=== PATIENT | female | born 1985 | race Two or more races ===

== ENCOUNTER 2022-02-28 07:15 | Emergency (ER) | payer MEDICAID, OTHER ==
[~2022-02-28] VITALS: Ht 162.6 cm; Wt 81.4 kg
[2022-02-28 07:40] VITALS: BP 129/94
[2022-02-28] MEDS ORDERED: TETRACAINE HCL 0.5% OPTH(EYE) SOLN 4ML RIGHTEYE ONE (08:00)
[2022-02-28] MEDS ORDERED: FLUORESCEIN SOD OPTH TEST STRIP OP ONE (08:00)
[2022-02-28] MEDS ORDERED: CIP03OS RIGHTEYE (08:29)
== END 2022-02-28 08:44 | disposition home or self-care (01) ==
LOC: ER 07:15
DX: S05.01XA Injury of conjunctiva and corneal abrasion without foreign body, right eye, initial encounter (principal); X58.XXXA Exposure to other specified factors, initial encounter; Y93.89 Activity, other specified; Y92.89 Other specified places as the place of occurrence of the external cause; Y99.8 Other external cause status

== ENCOUNTER 2022-11-20 16:27 | Emergency (ER) | payer MEDICAID ==
[~2022-11-20] VITALS: Ht 162.6 cm; Wt 86.4 kg
[~2022-11-20 16:27] MED LIST: CIP03OS RIGHTEYE
[2022-11-20] MEDS ORDERED: ACETAMINOPHEN 500 MG TAB PO ONE (17:45)
[2022-11-20 17:46] VITALS: BP 133/90
[2022-11-20] MEDS ORDERED: IBUP600T28 PO (18:22)
[2022-11-20] MEDS ORDERED: IBUPROFEN 600 MG TAB PO ONE (18:30)
[2022-11-20] MEDS ORDERED: SUMAtriptan SUCCINATE 25 MG TAB PO ONE (18:45)
== END 2022-11-20 18:27 | disposition home or self-care (01) ==
LOC: ER 16:27
DX: G43.909 Migraine, unspecified, not intractable, without status migrainosus (principal)
CPT/HCPCS: 70450

== ENCOUNTER 2022-11-26 23:43 | Emergency (ER) | payer MEDICAID ==
[~2022-11-26] VITALS: Ht 170.2 cm; Wt 81.8 kg
[~2022-11-26 23:43] MED LIST changes: +IBUP600T28 PO
[2022-11-27] MEDS ORDERED: IBUP800T27 PO (03:52)
[2022-11-27 04:30] VITALS: BP 134/79
== END 2022-11-27 04:30 | disposition home or self-care (01) ==
LOC: ER 23:43
DX: S93.402A Sprain of unspecified ligament of left ankle, initial encounter (principal); W01.0XXA Fall on same level from slipping, tripping and stumbling without subsequent striking against object, initial encounter; Y93.89 Activity, other specified; Y92.89 Other specified places as the place of occurrence of the external cause; Y99.8 Other external cause status
CPT/HCPCS: 73610

== ENCOUNTER 2023-01-21 23:55 | Emergency (ER) | payer MEDICAID ==
[~2023-01-21] VITALS: Ht 167.6 cm; Wt 77.2 kg
[~2023-01-21 23:55] MED LIST changes: +IBUP-1456 PO; +IBUP1TAB5 PO; -IBUP600T28 PO
[2023-01-22] MEDS ORDERED: ONDANSETRON HCL 4 MG/2 ML VIAL IV ONE (00:30)
[2023-01-22] MEDS ORDERED: HYDROmorphone HCL 2 MG/ML VL/or syr IV ONE (00:30)
[2023-01-22] MEDS ORDERED: ceFAZolin 2 GM/D5W100ml 100 ML IV ONE (00:30)
[2023-01-22] MEDS ORDERED: SODIUM CHLORIDE 0.9% 1,000 ML IV ONE (00:30)
[2023-01-22] MEDS ORDERED: IODIXANOL 320MG/ML 100ML BTL IV ONE (00:35)
[2023-01-22] MEDS ORDERED: VANCOMYCIN 1GM/250ML 250 ML IV ONE (02:15)
[2023-01-22] MEDS ORDERED: IOHEXOL 350 MG/ML 100ML IJ ONE (02:49)
[2023-01-22 03:08] LABS: Basophils # (auto) 0.1 10 ^3/uL (0-0.2); Eosinophils # (auto) 0.1 10 ^3/uL (0-0.8); Eosinophils % (auto) 0.5 % (0.0-7.0); Hematocrit 39.8 % (36.0-46.0); Hemoglobin 13.1 g/dL (12.2-16.2); Lymphocytes # (auto) 1.7 10 ^3/uL (0.4-5.4); Lymphocytes % (auto) 16.1 % (10.0-50.0); Mean Corpuscular Hemoglobin 29.9 pg (28.0-32.0); Mean Corpuscular Volume 90.7 fL (80.0-100.0); Monocytes # (auto) 0.8 10 ^3/uL (0-1.3); Monocytes % (auto) 7.1 % (0.0-12.0); Neutrophils # (auto) 8.2 10 ^3/uL (1.6-8.6); Neutrophils % (auto) 75.3 % (37.0-80.0); Red Blood Cells 4.39 10^6/uL (4.0-5.20); Red Cell Distribution Width 13.7 % (11.8-14.3); White Blood Cell 10.8 10^3/uL (4.4-10.8)
[2023-01-22 03:24] LABS: Albumin 3.9 g/dL (3.4-5.0); Potassium 4.1 mmol/L (3.5-5.1)
[2023-01-22 03:28] LABS: BUN/Creatinine Ratio 18.5 (10.0-20.0); Bilirubin, Total 0.2 mg/dL (0.2-1.0); Total Protein 7.1 g/dL (6.4-8.2)
[2023-01-22] MEDS ORDERED: diphenhdrAMINE HCL 50 MG/1 ML VL IV ONE (05:15)
[2023-01-22 08:51] VITALS: BP 148/86
== END 2023-01-22 09:49 | disposition left against medical advice (07) ==
LOC: ER 23:55
DX: S51.821A Laceration with foreign body of right forearm, initial encounter (principal); W22.01XA Walked into wall, initial encounter; Y93.89 Activity, other specified; Y92.89 Other specified places as the place of occurrence of the external cause; Y99.8 Other external cause status
CPT/HCPCS: 36415; 73201; 80053; 85025; 96361; 96365; 96375; 99285; J1170; J1200; J2405; J3370; J7030; Q9967

== ENCOUNTER 2023-04-03 12:25 | Emergency (ER) | payer MEDICAID ==
[~2023-04-03] VITALS: Ht 167.6 cm; Wt 81.5 kg
[2023-04-03] MEDS ORDERED: HYDROmorphone HCL 2 MG/ML VL/or syr IV ONE (14:15)
[2023-04-03] MEDS ORDERED: ONDANSETRON ODT 4 MG TAB PO ONE (14:15)
[2023-04-03] MEDS ORDERED: HYDROmorphone HCL 2 MG/ML VL/or syr IM ONE (14:15)
[2023-04-03 14:24] VITALS: TEMP 98.6
[2023-04-03 14:29] VITALS: PULSE 99; RESP 18; O2SAT 100
[2023-04-03 14:49] VITALS: BP 122/93; PULSE 107; RESP 18
== END 2023-04-03 15:09 | disposition home or self-care (01) ==
LOC: ER 12:25
DX: M79.631 Pain in right forearm (principal); Z79.1 Long term (current) use of non-steroidal anti-inflammatories (NSAID); Z79.899 Other long term (current) drug therapy; Z88.1 Allergy status to other antibiotic agents
CPT/HCPCS: 96372; 99283; J1170; Q0162

== ENCOUNTER 2023-05-12 22:58 | Emergency (ER) | payer MEDICAID ==
[~2023-05-12] VITALS: Ht 170.2 cm; Wt 83.1 kg
[2023-05-12 23:42] VITALS: BP 168/112; PULSE 104; RESP 18; O2SAT 98
== END 2023-05-13 00:35 | disposition left against medical advice (07) ==
LOC: ER 22:59
DX: M79.631 Pain in right forearm (principal); M79.89 Other specified soft tissue disorders; Z53.21 Procedure and treatment not carried out due to patient leaving prior to being seen by health care provider

== ENCOUNTER 2023-07-03 18:32 | Emergency (ER) | payer MEDICAID ==
[~2023-07-03] VITALS: Ht 167.6 cm; Wt 81.8 kg
[2023-07-03 18:46] VITALS: BP 167/111; PULSE 120; RESP 20; O2SAT 98
[2023-07-03 19:25] LABS: Basophils # (auto) 0.1 10 ^3/uL (0-0.2); Basophils % (auto) 0.4 % (0.0-2.0); Eosinophils # (auto) 0 10 ^3/uL (0-0.8); Eosinophils % (auto) 0.1 % (0.0-7.0); Hematocrit 43.4 % (36.0-46.0); Hemoglobin 14.2 g/dL (12.2-16.2); Lymphocytes # (auto) 1.8 10 ^3/uL (0.4-5.4); Lymphocytes % (auto) 9.5 % (10.0-50.0); Mean Corpuscular Hemoglobin 29.8 pg (28.0-32.0); Mean Corpuscular Hgb Conc. 32.7 g/dL (32.0-36.0); Mean Corpuscular Volume 91.2 fL (80.0-100.0); Monocytes # (auto) 1.3 10 ^3/uL (0-1.3); Monocytes % (auto) 7.1 % (0.0-12.0); Neutrophils # (auto) 15.4 10 ^3/uL (1.6-8.6); Neutrophils % (auto) 82.9 % (37.0-80.0); Red Blood Cells 4.76 10^6/uL (4.0-5.20); Red Cell Distribution Width 13.5 % (11.8-14.3); White Blood Cell 18.5 10^3/uL (4.4-10.8)
[2023-07-03] MEDS ORDERED: KETOROLAC TROMETH 60MG/2ML VIAL IM ONE (19:30)
[2023-07-03 19:46] LABS: Alanine Aminotransferase 23 U/L (7-40); Alkaline Phosphatase 130 U/L (46-116); Anion Gap 7 (5-15); Aspartate Aminotransferase 23 U/L (13-40); Bilirubin, Total 0.9 mg/dL (0.2-1.0); Blood Urea Nitrogen 9 mg/dL (9-23); Calcium 9.8 mg/dL (8.5-10.1); Carbon Dioxide 26 mmol/L (20-30); Chloride 105 mmol/L (98-107); Glucose 112 mg/dL (74-106); Potassium 3.6 mmol/L (3.5-5.1); Sodium 138 mmol/L (136-145); Total Protein 8.2 g/dL (5.7-8.2)
[2023-07-04 13:44] LABS: Lipase 27 U/L (12-53)
== END 2023-07-03 20:15 | disposition left against medical advice (07) ==
LOC: EDBD 18:32 → ER 18:32
DX: F19.10 Other psychoactive substance abuse, uncomplicated (principal); R10.2 Pelvic and perineal pain; R10.11 Right upper quadrant pain; Z88.8 Allergy status to other drugs, medicaments and biological substances; Z79.899 Other long term (current) drug therapy
CPT/HCPCS: 36415; 80053; 83690; 84702; 85025; 99283; J1885